=== PATIENT | male | born 1955 | race Caucasian/White ===

== ENCOUNTER 2024-08-04 15:40 | Emergency (ER) | payer MEDICARE ==
[~2024-08-04] VITALS: Ht 180.3 cm; Wt 69.8 kg
[2024-08-04 16:32] LABS: BASOPHILS ABSOLUTE AUTO 0.03 K/mm3 (0.00-0.23); BASOPHILS PERCENT AUTO 1 % (0-2); EOSINOPHILS PERCENT AUTO 0 % (0-6); Hematocrit 35.7 % (37.0-53.0); Hemoglobin 12.6 g/dL (13.5-17.5); IMMATURE GRAN ABSOLUTE AUTO 0.01 K/mm3 (0.00-0.10); IMMATURE GRAN PERCENT AUTO 0 % (0-1); LYMPHOCYTES ABSOLUTE AUTO 1.69 K/mm3 (0.84-5.20); LYMPHOCYTES PERCENT AUTO 38 % (21-46); MONOCYTES ABSOLUTE AUTO 0.43 K/mm3 (0.16-1.47); MONOCYTES PERCENT AUTO 10 % (4-13); Mean Corpuscular HGB 34.1 pg (26.0-34.0); Mean Corpuscular HGB Conc 35.3 g/dL (31.5-36.5); Mean Corpuscular Volume 97 fL (80-100); Mean Platelet Volume 9.5 fL (9.1-12.4); NEUTROPHILS ABSOLUTE AUTO 2.27 K/mm3 (1.96-9.15); NEUTROPHILS PERCENT AUTO 51 % (41-73); Platelet Count 138 K/mm3 (150-400); RDW Coefficient Variation 16.2 % (11.7-14.2); RDW Standard Deviation 57.3 fL (35.1-46.3); White Blood Cell Count 4.43 K/mm3 (4.00-11.30)
[2024-08-04] MEDS ORDERED: LANS30EC PO (16:49)
[2024-08-04] MEDS ORDERED: QUET200 PO (16:49)
[2024-08-04] MEDS ORDERED: LOSA25 PO (16:49)
[2024-08-04] MEDS ORDERED: ALLO300 PO (16:49)
[2024-08-04] MEDS ORDERED: B-1100 M1 PO (16:49)
[2024-08-04] MEDS ORDERED: TRAM50 PO (16:50)
[2024-08-04] MEDS ORDERED: Chantix1 MG PO (16:50)
[2024-08-04] MEDS ORDERED: TIZA4 PO (16:50)
[2024-08-04 17:00] LABS: Albumin, Blood 3.2 g/dL (3.4-5.0); Albumin/Globulin Ratio 0.9 (0.8-1.8); Bilirubin, Total 0.5 mg/dL (0.1-1.0); Bun/Creatinine Ratio 19.5 (12.0-20.0); Calcium, Blood 8.9 mg/dL (8.5-10.1); Creatinine, Blood 0.57 mg/dL (0.60-1.20); Globulin, Blood 3.6 g/dL (2.2-4.0); Potassium, Blood 3.6 mmol/L (3.5-5.5); Total Protein, Blood 6.8 g/dL (6.4-8.2)
[2024-08-04] MEDS ORDERED: Diazepam 5 MG Tab PO ONE (17:50)
[2024-08-04] MEDS ORDERED: Thiamine HCl 100 MG in NS 50 ML IV ONE (17:50)
[2024-08-04] MEDS ORDERED: Folic Acid 1 MG TAB PO ONE (17:50)
== END 2024-08-04 20:20 | disposition home or self-care (01) ==
LOC: ER 15:40
PROVIDERS: Student in an Organized Health Care Education/Training Program
DX: F10.239 Alcohol dependence with withdrawal, unspecified (principal); Z79.899 Other long term (current) drug therapy; Z88.8 Allergy status to other drugs, medicaments and biological substances
CPT/HCPCS: 80053; 85025; 96365; 99285-25; A9270; J3411